=== PATIENT | male | born 1965 | race Caucasian/White ===

== ENCOUNTER 2021-10-20 08:53 | Day surgery (SDC) | payer OTHER ==
[2021-10-20] MEDS ORDERED: Sodium Bicarbonate 2.5 MEQ/5 ML VIAL ONE (09:18)
[2021-10-20 09:50] VITALS: BP 133/84; TEMP 97.4
[2021-10-20] MEDS ORDERED: Iopamidol-M 200 41% 10 ML VIAL FS ONE (14:20)
== END 2021-10-20 11:17 | disposition home or self-care (01) ==
LOC: CSHRAD 08:53
PROVIDERS: ATTEND Neurological Surgery
PROC: B01B1ZZ Fluoroscopy of Spinal Cord using Low Osmolar Contrast (ICD-10-PCS; principal; 2021-10-20)
DX: M51.16 Intervertebral disc disorders with radiculopathy, lumbar region (principal); M48.061 Spinal stenosis, lumbar region without neurogenic claudication; M48.07 Spinal stenosis, lumbosacral region; Z79.82 Long term (current) use of aspirin; Z79.899 Other long term (current) drug therapy; Z98.1 Arthrodesis status
CPT/HCPCS: 62304; 72132; Q9966